=== PATIENT | female | born 1970 | race Caucasian/White ===

== ENCOUNTER 2017-02-22 20:00 | Emergency (ER) | payer BC ==
--- NOTE | 2017-02-22 20:42 | ED ---
Lower Extremity - HPI Summary HPI Summary: 46 y/o female s/p mechnical fall while at rental house- while closing door, ? missed step, twisted right ankle, then L ankle landed, felt "pop", fell. no LOC , no pain. no PMH, no medications. H/o ankle twistiing injuries while playing sports in past. No bleeding - History of Current Complaint Chief Complaint: EDExtremityLower Stated Complaint: LT ANKLE INJURY Time Seen by Provider: 02/22/17 20:11 Hx Obtained From: Patient, Family/Timber [employer]ider Mechanism Of Injury: Fall From A Standing Position Onset of Pain: Immediate Onset/Duration: Minutes Severity Initially: Severe Severity Currently: Severe Pain Intensity: 8 Pain Scale Used: 0-10 Numeric - Allergies/Home Medications Allergies/Adverse Reactions: Allergies Allergy/AdvReac Type Severity Reaction Status Date / Time Esomeprazole [From Nexium] Allergy Hives Verified 02/22/17 20:22 Omeprazole [From Prilosec] Allergy Hives Verified 02/22/17 20:22 Penicillins [PCN] Allergy Hives Verified 02/22/17 20:22 Sulfa Antibiotics Allergy Hives Verified 02/22/17 20:22 PMH/Surg Hx/FS Hx/Imm Hx Previously Healthy: Yes Infectious Disease History: No Infectious Disease History: Denies: Traveled Outside the [place] in Last 30 Days - Social History Alcohol Use: Occasionally Substance Use Type: Reports: None Smoking Status (MU): Never Smoked Tobacco Review of Systems Constitutional: Negative Eyes: Negative ENT: Negative Positive: Arthralgia, Myalgia, Decreased ROM, Edema Positive: Bruising All Other Systems Reviewed And Are Negative: Yes Physical Exam - Summary Physical Exam Summary: L ankle deformity, closed, no bleeding/ open wound Triage Information Reviewed: Yes Vital Signs On Initial Exam: Initial Vitals Temp Pulse Resp BP Pulse Ox 98.5 F 81 18 132/74 99 02/22/17 20:11 02/22/17 20:11 02/22/17 20:11 02/22/17 20:11 02/22/17 20:11 Vital Signs Reviewed: Yes Appearance: Positive: Well-Appearing, Pain Distress - mild to moderate, anxious Skin: Positive: Warm, Skin Color Reflects Adequate Perfusion Head/Face: Positive: Normal Head/Face Inspection Eyes: Positive: EOMI, MYAH Neck: Positive: Supple, Nontender Abdomen Description: Positive: Nontender, No Organomegaly, Soft Musculoskeletal: Positive: Strength/ROM Intact - strength not tested due to pain. AROM- able to dorsi/ plantar, inver/ ever abd/ abb L foot, + full rom L toes. PT pulses 1+ d/t edema, DP 2+. + moderate to severe edema over L ankle. + ecchymosis over b/l mal. tenderness, severe, over lat and med mal, no post tenderness, Edema Left, Other - Patient reduced after 5cc 1% lidocaine injected into L ankle joint. Patient tolerated procedure well without complication. post-reduction films- Neurological: Positive: Normal, Sensory/Motor Intact - sensation to L LE intact grossly. neg homans, - achilles testing, Alert, Oriented to Person Place, Time - [place] Coma Scale Coma Scale Total: 15 Diagnostics - Vital Signs Vital Signs Temp Pulse Resp BP Pulse Ox 02/22/17 20:11 98.5 F 81 18 132/74 99 - Laboratory Lab Statement: Any lab studies that have been ordered have been reviewed, and results considered in the medical decision making process. Lower Extremity Course/Dx - Course Course Of Treatment: S/P reduction without complication, post-reduction films show adequate placement. Patient tried crutches, d/c'd with tylenol #3 liquid for pain, follow up with ortho in 5-7 days, splint care. sign out to Trev @ 11:15. Discussed case with Dr. Camacho. - Diagnoses Differential Diagnosis/HQI/PQRI: Positive: Fracture (Closed), Fracture (Open), Infection, Osteomyelitis, Strain Provider Diagnoses: Trimalleolar fracture of left ankle Discharge - Discharge Plan Condition: Improved Disposition: HOME Prescriptions: Acetaminoph/Cod 120/12 mg LIQ* [Tylenol/Codeine 120/12 LIQ*] 10 ml PO Q4H PRN # 20 dose MDD 60mL PRN Reason: Pain Patient Education Materials: Ankle Dislocation (ED), RICE Therapy (ED) Referrals: No Primary Care Phys,NOPCP [Primary Care Provider] - Additional Instructions: - Follow up with an orthopedist within 1 week for evaluation, possible surgery - tylenol #3 as needed for severe pain every 4-6 hours - Motrin/ ibuprofen 400-600mg every 4-6 hours as needed for mild-moderate pain - Keep leg elevate, non-weight bearing, do not get splint wet or remove - Return to urgent care or ER with decreased sensation, pain, or numbness that is not relieved with elevating leg
[2017-02-22] MEDS ORDERED: Morphine INJ* 2 MG/ML 1 ML SYRINGE IM PRN (21:00)
[2017-02-22] MEDS ORDERED: PROCHLORPERAZINE INJ 5 MG/ML 2 ML VIAL IV PRN (21:08)
--- NOTE | 2017-02-22 21:15 | RAD ---
Indication: Left ankle injury. 2 views of left ankle demonstrate trimalleolar fracture with posterior subluxation of the talus. IMPRESSION: Trimalleolar fracture with posterior subluxation of the talus.
[2017-02-22] MEDS ORDERED: PROCHLORPERAZINE INJ 5 MG/ML 2 ML VIAL IV ONE (21:17)
[2017-02-22] MEDS ORDERED: Lidocaine 1% INJ* 10 MG/ML 30 ML SDV INJ ONE (21:34)
[2017-02-22] MEDS ORDERED: Morphine INJ* 2 MG/ML 1 ML SYRINGE IV ONE (21:35)
[2017-02-22] MEDS ORDERED: Acetaminoph/Cod 120/12 mg LIQ* 5 ML UDC PO PRN (23:13)
[2017-02-23 02:15] VITALS: BP 120/71
--- NOTE | 2017-02-23 07:32 | RAD ---
INDICATION: Traumatic fracture of the left ankle. COMPARISON: Comparison is made with a prior x-ray study of the left ankle from February 22, [address] of the left ankle from February 23, 2017. TECHNIQUE: 3 views of the left ankle were obtained. FINDINGS: The patient is status post external reduction. The bones are visualized through a fiberglass splint. There is a transverse intra-articular fracture of the medial malleolus. The distal fragment is slightly distracted. There is an oblique intra-articular fracture of the distal fibula. The distal fragment is displaced slightly lateral and posterior approximately 1-2 cortical diameters. There is diffuse widening of the ankle mortise. There is been interval reduction of the previously noted tibiotalar subluxation. IMPRESSION: BIMALLEOLAR FRACTURE STATUS POST EXTERNAL REDUCTION DESCRIBED.
--- NOTE | 2017-02-23 08:09 | RAD ---
INDICATION: Traumatic fracture dislocation of the left ankle. COMPARISON: Comparison is made with a prior x-ray study of the left ankle from February 22, 2017. TECHNIQUE: Contiguous axial sections were obtained of the left ankle. Images were reconstructed in the sagittal and coronal planes. FINDINGS: There is diffuse soft tissue swelling present around the ankle and hindfoot. There is a small amount of subcutaneous air possibly representing a laceration type injury. Recommend clinical correlation. There has been interval reduction of the previously noted dislocation of the tibiotalar joint. There is an oblique intra-articular fracture of the distal fibula. The fracture is slightly comminuted. There is posterior displacement of the distal fragment approximately 6 mm relative the proximal fragment and there is mild lateral displacement of the distal fragment relative the proximal fragment approximately 3 mm. There is a transverse intra-articular fracture of the medial malleolus. The distal fracture fragment is distracted approximately 5 mm. There appears to be a tiny possible intra-articular fracture fragment located posteriorly measuring 2 mm in size. There is a chip fracture of the posterior malleolus. IMPRESSION: 1. OBLIQUE SLIGHTLY COMMINUTED, DISPLACED INTRA-ARTICULAR FRACTURE OF THE DISTAL FIBULA. 2. TRANSVERSE SLIGHTLY DISPLACED INTRA-ARTICULAR FRACTURE OF THE MEDIAL MALLEOLUS WITH POSSIBLE SMALL INTRA-ARTICULAR FRACTURE FRAGMENT. 3. SMALL CHIP FRACTURE OF THE POSTERIOR MALLEOLUS. 4. SMALL AMOUNT OF SUBCUTANEOUS AIR POSSIBLY INDICATING A LACERATION INJURY. RECOMMEND CLINICAL CORRELATION.
== END 2017-02-23 02:10 | disposition home or self-care (01) ==
LOC: ED 20:00
DX: S82.852A Displaced trimalleolar fracture of left lower leg, initial encounter for closed fracture (principal); W19.XXXA Unspecified fall, initial encounter; Y92.009 Unspecified place in unspecified non-institutional (private) residence as the place of occurrence of the external cause
CPT/HCPCS: 27818; 96372; 96374; 96375; 99284; A9270-GY; J0780; J2001; J2270